=== PATIENT | female | born 1945 | race Caucasian/White ===

== ENCOUNTER 2016-09-04 06:13 | Day surgery (SDC) | payer OTHER ==
[~2016-09-04] VITALS: Ht 165.1 cm; Wt 63.5 kg
[~2016-09-04 06:13] MED LIST: CALTRATE PLUS1 EACH PO; CLARITIN,ALAVAR10 MG PO; FISH OIL 1,2001 EAC5 PO; MULTI-DAY VITA1 EACH PO; VITAMIN D-32000 UNI2 PO; VOLTAREN 1% GE100 GM TP
[2016-09-04 07:52] VITALS: BP 128/75
[2016-09-04 10:46] VITALS: BP 165/87
[2016-09-04 12:00] VITALS: BP 162/83
== END 2016-09-04 12:20 | disposition home or self-care (01) ==
LOC: SDC 06:13
DX: H35.371 Puckering of macula, right eye (principal); E78.5 Hyperlipidemia, unspecified; R73.01 Impaired fasting glucose
CPT/HCPCS: J0330; J0690; J0713; J1200; J2405; J3300

== ENCOUNTER 2016-10-09 06:17 | Day surgery (SDC) | payer OTHER ==
[~2016-10-09] VITALS: Ht 165.1 cm; Wt 63.5 kg
[2016-10-09 07:15] VITALS: BP 163/88
[2016-10-09 07:26] VITALS: BP 163/88
[2016-10-09 12:54] VITALS: BP 183/68
[2016-10-09 14:15] VITALS: BP 179/91
== END 2016-10-09 14:20 | disposition home or self-care (01) ==
LOC: SDC 06:17
PROC: 3E0CXSF Introduction of Other Gas into Eye, External Approach (ICD-10-PCS; principal; 2016-10-09)
PROC: 08QE3ZZ Repair Right Retina, Percutaneous Approach (ICD-10-PCS; principal; 2016-10-09)
PROC: 08B43ZZ Excision of Right Vitreous, Percutaneous Approach (ICD-10-PCS; principal; 2016-10-09)
DX: H33.21 Serous retinal detachment, right eye (principal); H35.21 Other non-diabetic proliferative retinopathy, right eye; E78.5 Hyperlipidemia, unspecified; R73.01 Impaired fasting glucose
CPT/HCPCS: J0330; J0690; J0713; J1100; J2250; J2310; J2405; J3010; J3300